=== PATIENT | female | born 1980 | race African-American/Black ===

== ENCOUNTER 2021-05-18 02:58 | Emergency (ER) | payer OTHER ==
[~2021-05-18] VITALS: Ht 149.9 cm; Wt 75.0 kg
[2021-05-18 03:07] VITALS: BP 129/81
[2021-05-18] MEDS ORDERED: ONDA4TAB6 PO (03:16)
[2021-05-18] MEDS ORDERED: ondansetron 4mg rapidly disintigrating tab PO ONE (03:20)
[2021-05-18] MEDS ORDERED: acetaminophen 325mg tablet PO ONE (03:20)
== END 2021-05-18 04:40 | disposition home or self-care (01) ==
LOC: ER 03:00
DX: S06.0X0A Concussion without loss of consciousness, initial encounter (principal); J34.1 Cyst and mucocele of nose and nasal sinus; Y04.8XXA Assault by other bodily force, initial encounter; Y93.89 Activity, other specified; Y92.89 Other specified places as the place of occurrence of the external cause; Y99.8 Other external cause status
CPT/HCPCS: 70450; 70486; 99283; 99285